=== PATIENT | male | born 2000 | race African-American/Black ===

== ENCOUNTER 2023-02-09 19:48 | Emergency (ER) | payer OTHER, SELFPAY ==
[2023-02-09 20:18] VITALS: BP 121/58; PULSE 64; RESP 18; TEMP 36.6; O2SAT 98; BMI 20.7
--- NOTE | 2023-02-09 20:20 | ED.WOUNDLAC ---
HPI - Wound/Laceration General Chief Complaint: Wound/Laceration Stated Complaint: open wound Time Seen by Provider: 02/09/23 23:36 Source: patient, RN notes reviewed and old records reviewed Mode of arrival: ambulatory Limitations: no limitations History of Present Illness HPI narrative: 22-year-old male presents for evaluation of a laceration to the right upper lip Patient was playing basketball when he at elbow in his upper lip He sustained a small laceration No loss of consciousness or other injuries Unknown last tetanus This happened just prior to arrival Related Data Allergies Allergy/AdvReac Type Severity Reaction Status Date / Time No Known Allergies Allergy Unverified 05/15/20 17:25 Review of Systems Integumentary/Breasts: Skin/Breast: Reports wounds PMFSH Social History Social History Advance Directives: No Advance Directives Information Provided: Yes Physical Exam Vital Signs: Vital Signs: Last Vital Signs Temp 97.7 F 02/10/23 00:00 Pulse 65 02/10/23 00:00 Resp 16 02/10/23 00:00 BP 133/77 02/10/23 00:00 Pulse Ox 98 02/10/23 00:00 O2 Del Method Room Air 02/10/23 00:00 BMI result Body Mass Index 20.7 Const: General: healthy appearing, comfortable, no acute distress, alert and awake Nutritional Appearance: well nourished Orientation/consciousness: patient oriented x3 Eyes: Eyelids: Yes eyelids normal Conjunctivae: conjunctivae normal Sclerae: sclerae normal Corneas: corneas normal Pupils: Equal, round and reactive pupils present EOM: EOMs intact bilaterally Skin: Other: Patient has an approximately 2 cm Y-shaped laceration to the right upper lip. The tail end of the wound does cross the vermilion border by about a half a cm. The patient does have a small avulsion to the inside of the lip but the wound is not through and through Neuro: General: patient oriented x3 Cranial nerves: Yes Equal, round and reactive pupils present and Yes Bilaterally intact EOM present Cognition (Neuro): normal cognition Course Course Course Narrative: RME - 22 yo male presents to the ER for evaluation of an upper lip laceration sustained today when he got elbowed in the mouth while playing basketball. No loose teeth. Lac goes through and through, involved the yamilka border of the upper lip. no active bleeding. Plan: tdap, lac repair Medications Administered Discontinued Medications Generic Name Dose Route Start Last Admin Trade Name Parth PRN Reason Stop Dose Admin Diphtheria/Tetanus/Acell Pertussis 0.5 ml 02/09/23 20:18 02/09/23 22:11 Diphth,Pertus(Acell),Tet Adult 0.5 Ml Syringe IM 02/09/23 20:19 0.5 ml .ONCE ONE Administration Lidocaine HCl 2 ml 02/09/23 23:54 02/10/23 00:04 Lidocaine Hcl 1 % Mpf 2 Ml Vial INFILTRATI 02/09/23 23:55 2 ml ONCE ONE Administration Medical Decision Making Medical Decision Making MDM Narrative: See procedure note for wound repair. Tetanus updated. Differential Diagnosis Laceration Skin tear Puncture wound Complicated laceration Procedures Laceration Laceration 1: Site: lip Side (If applicable): right Size (cm): 2 Description: irregular (Y shape), clean and involves yamilka border Depth: simple, single layer Local Anesthetic: lidocaine 1% Amount of anesthesia used (mL): 2 Pre-repair: wound explored Skin layer closed with: nylon Size (cm): 6-0 Number of sutures: 5 Technique: simple, interrupted Discharge Plan Discharge Clinical Impression: Laceration of lip Patient Disposition: Home, Self-Care Instructions: Facial Laceration (ED) Additional Instructions: Keep the sutures clean and dry. You had 5 sutures placed today. These can be removed in 5-7 days You may apply topical antibiotic Your tetanus shot was updated today
[2023-02-09 22:00] VITALS: BP 111/56; PULSE 50; RESP 16; TEMP 37; O2SAT 97
[2023-02-09] MEDS: Diphth,Pertus(ACell),Tet Adult 0.5 ML SYRINGE IM (22:11)
[2023-02-10] VITALS: BP 133/77; PULSE 65; RESP 16; TEMP 36.5; O2SAT 98
[2023-02-10] MEDS: Lidocaine HCl 1 % MPF 2 ML VIAL INFILTRATI (00:04)
--- NOTE | 2023-02-10 00:05 | PC.NURSE ---
Lidocaine given to lac by provider
== END 2023-02-10 00:55 | disposition home or self-care (01) ==
PROVIDERS: Emergency Provider Internal Medicine
DX: S01.511A Laceration without foreign body of lip, initial encounter (principal); X58.XXXA Exposure to other specified factors, initial encounter; Y93.67 Activity, basketball; Y92.9 Unspecified place or not applicable; Y99.9 Unspecified external cause status; Z23 Encounter for immunization
CPT/HCPCS: 12011; 90471; 90715; 99283; 99284

== ENCOUNTER 2023-02-15 18:52 | Emergency (ER) | payer OTHER, SELFPAY ==
[2023-02-15 19:05] VITALS: BP 134/64; PULSE 63; RESP 18; TEMP 36.1; O2SAT 100; BMI 23.1
--- NOTE | 2023-02-15 19:12 | ED.GENADULT ---
HPI - General Adult General Chief complaint: Wound/Laceration Stated complaint: stiches removed Time Seen by Provider: 02/15/23 19:06 Source: patient, RN notes reviewed and old records reviewed Mode of arrival: ambulatory Limitations: no limitations Related Data Allergies Allergy/AdvReac Type Severity Reaction Status Date / Time No Known Allergies Allergy Unverified 05/15/20 17:25 Review of Systems Integumentary/Breasts: Comments: Healing laceration with [address] Physical Exam ED Vital Signs: Vital Signs - 24 hr 02/15/23 19:05 Temperature 97 F Pulse Rate 63 Respiratory Rate 18 Blood Pressure 134/64 Pulse Oximetry 100 Oxygen Delivery Method Room Air BMI result Body Mass Index 23.1 Skin Other: Healing laceration to the right upper lip is well healed, no surrounding erythema, no purulence, no edema. Five sut[address] Medical Decision Making Medical Decision Making MDM Narrative: I was easily able to remove 5 sutures with scissors and forceps. No dehiscence afterwards, no complications. Differential Diagnosis Suture removal Laceration Skin tear wound check Discharge Plan Discharge Clinical Impression: Laceration, Encounter for removal of sutures Patient Disposition: Home, Self-Care Instructions: Stitches Removal (ED) Additional Instructions: You had 5 sutures removed today without complication Follow-up with your primary doctor Interventions: ED Discharge Assessment Last Done: 02/15/23 19:10
== END 2023-02-15 19:43 | disposition home or self-care (01) ==
LOC: HO.ED 19:19
PROVIDERS: Emergency Provider Emergency Medicine
DX: Z48.02 Encounter for removal of sutures (principal)
CPT/HCPCS: 99282

== ENCOUNTER 2023-08-14 22:56 | Emergency (ER) | payer OTHER, SELFPAY ==
--- NOTE | ~2023-08-14 | XR_ITS ---
EXAMINATION: XR ANKLE, LEFT CLINICAL INFORMATION: Injury COMPARISON: None available. TECHNIQUE: AP, lateral, and mortise views of the left ankle. FINDINGS: No acute fracture or dislocation. Ankle mortise is congruent. Talar dome intact. Prominent lateral soft tissue swelling. No significant ankle joint effusion. XR/XR ankle LT 2V IMPRESSION: * No acute fracture or dislocation. * Prominent lateral soft tissue swelling.
[2023-08-14 23:02] VITALS: BP 124/66; PULSE 50; RESP 20; TEMP 36.5; O2SAT 98; BMI 20.3
--- NOTE | 2023-08-14 23:52 | ED_ITS ---
HPI - Extremity Injury (Lower) General Chief Complaint: Extremity Injury, Lower Stated Complaint: sprained ankle Time Seen by Provider: 08/14/23 23:42 Source: patient Mode of arrival: ambulatory Limitations: no limitations History of Present Illness HPI Narrative: Patient comes to emergency room complaining of left ankle pain and swelling. Patient states that yesterday he was playing basketball, and accidentally rolled his ankle. Yesterday he started having pain and swelling, has been walking on his foot but it is painful doing so. Patient states he has been icing intermittently his ankle. Patient states that he did not come before because he has had ankle sprains before and usually start healing pretty fast. Today, he noted more ecchymosis around the ankle. Related Data Previous Rx's Medication Instructions Recorded ibuprofen 600 mg tablet 600 mg PO TID PRN fever or pain 08/15/23 #20 tabs Allergies Allergy/AdvReac Type Severity Reaction Status Date / Time No Known Allergies Allergy Unverified 05/15/20 17:25 Review of Systems Review of Systems: Constitutional : No Weight loss, No Fever, No Chills, No Night Sweats, No Fatigue, No Malaise ENT/Mouth : No Hearing loss, No Ear Pain, No Nasal Congestion, No Sinus Pain, No Hoarseness, No sore throat, No Rhinorrhea, No Swallowing Difficulty Eyes: No Eye Pain, No Swelling, No Redness, No Foreign Body, No Discharge, No Vision Changes Cardiovascular : No Chest Pain, No SOB, No Dyspnea on Exertion, No Orthopnea, No Edema, No Palpitations Respiratory : No Cough, No Sputum, No Wheezing, No Smoke Exposure, No Dyspnea Gastrointestinal : No Nausea, No Vomiting, No Diarrhea, No Constipation, No abdominal Pain, No Hematochezia, No Melena Genitourinary : no irregular bleeding, No Dysuria, No Urinary Frequency, No Hematuria, No Urinary Incontinence, No Urgency, No Flank Pain, No Urinary Flow Changes, No Hesitancy Musculoskeletal : Complaining of left ankle pain No Myalgias, No Joint Swelling Skin : No Skin Lesions, No rash Neuro : No Weakness, No Numbness, No Paresthesias, No Loss of Consciousness, No Dizziness, No Headache Psych : No Anxiety/Panic, No Depression, No SI/HI/AH/VH, No Social Issues, Heme/Lymph: No Bruising, No Bleeding,No Lymphadenopathy Endocrine : No Polyuria, No Polydipsia, No Temperature Intolerance [facility] Social History Social History Advance Directives: No Advance Directives Information Provided: No Physical Exam Vital Signs: Vital Signs: Last Vital Signs Temp 97.7 F 08/14/23 23:02 Pulse 50 08/14/23 23:02 Resp 20 08/14/23 23:02 BP 124/66 08/14/23 23:02 Pulse Ox 98 08/14/23 23:02 O2 Del Method Room Air 08/14/23 23:02 BMI result Body Mass Index 20.3 Const: Other: Appearance: Alert. Oriented X3. No acute distress. Eyes: Pupils equal, round and reactive to light. ENT: Pharynx normal. Neck: Normal inspection. Neck supple. No lymph nodes noted. No crepitus CVS: Normal heart rate and rhythm. Pulses normal. Normal S1 and S2 Respiratory: No respiratory distress. Breath sounds normal. No Wheezing. No rales Abdomen: Soft and nontender. No rigidity. No distention. Skin: Skin warm and dry. Normal skin color. Normal skin turgor. Extremities: Mild swelling to the lateral aspect of the ankle around the lateral malleolus, no significant pain to palpation. Ecchymosis below the malleolus Neuro: Oriented X 3. No motor deficit. No sensory deficit. Moving all extremities. No slurred speech. CN 2 through 12 grossly intact Psych: calm, cooperative, normal affect Course Course Course Narrative: -ankle x-ray pending Medical Decision Making Medical Decision Making MDM Narrative: -my interpretation of x-ray of the ankle: Tissue swelling, normal alignment, no fracture -patient requesting crutches, patient states that he has to work standing up and crutches would help him get through his day at work. -discussed with the patient to do a gentle ankle exercises to avoid frozen joint Differential Diagnosis Differential Diagnoses: The differential diagnosis associated with the presentation includes (Ankle sprain, malleolar fracture, ecchymosis) Independent Interpretation I performed an independent interpretation of an: Plain X-Ray Radiology Impression Discussion of test interpretation with radiology: I have reviewed the radiologist's reading. Radiologist Impression: FINDINGS: No acute fracture or dislocation. Ankle mortise is congruent. Talar dome intact. Prominent lateral soft tissue swelling. No significant ankle joint effusion. Discharge Plan Discharge Clinical Impression: Ankle sprain and strain Patient Disposition: Home, Self-Care Instructions: Ankle Sprain (ED) Additional Instructions: Please follow-up with your primary care physician tomorrow. If you have any worsening or new symptoms, please return to the emergency room or call 911 Prescriptions: New ibuprofen 600 mg tablet 600 mg PO TID PRN (Reason: fever or pain) Qty: 20 0RF Stand Alone Forms: Work/School Release
--- NOTE | 2023-08-15 00:40 | PC.NURSE ---
pt [email or web address] reports L. ankle injury x 1 day. +csm before and after stephanie bandage. crutch training provided pt able to ambulate comfortably with crutches. pt verbalizes understanding d/c instructions.
== END 2023-08-15 00:41 | disposition home or self-care (01) ==
PROVIDERS: Emergency Provider Emergency Medicine
DX: S93.402A Sprain of unspecified ligament of left ankle, initial encounter (principal); S96.912A Strain of unspecified muscle and tendon at ankle and foot level, left foot, initial encounter; Y93.67 Activity, basketball; Y92.9 Unspecified place or not applicable; Y99.9 Unspecified external cause status
CPT/HCPCS: 73600; 99282; 99283

== ENCOUNTER 2023-08-24 22:15 | Emergency (ER) | payer OTHER, SELFPAY ==
[2023-08-24 22:58] VITALS: BP 145/71; PULSE 56; RESP 16; TEMP 36.9; O2SAT 98; BMI 20.3
[2023-08-25] VITALS: BP 139/63; PULSE 54; RESP 14; TEMP 37; O2SAT 99
--- NOTE | 2023-08-25 00:59 | ED.LOWEXIN ---
HPI - Extremity Injury (Lower) General Chief Complaint: Extremity Injury, Lower Stated Complaint: Ankle swelling and pain Time Seen by Provider: 08/25/23 00:05 Source: patient Mode of arrival: ambulatory Limitations: no limitations History of Present Illness HPI Narrative: Patient is a 22-year-old male who presents emergency department for evaluation of persistent pain and swelling to the left ankle and foot. He states he was seen here last week and advised that he had an ankle sprain. He reports a history of sprains in the past but never having lasted for this duration so he sought re-evaluation today. He denies any injury. He denies numbness tingling or cold sensation to the foot. When asked, he states he is wearing the Dwayne bandage at times throughout the day, he has been ?elevating including his leg, but rather keeping at a neutral position, not above the level of his heart. Related Data Previous Rx's Medication Instructions Recorded ibuprofen 600 mg tablet 600 mg PO TID PRN fever or pain 08/15/23 #20 tabs Allergies Allergy/AdvReac Type Severity Reaction Status Date / Time No Known Allergies Allergy Unverified 05/15/20 17:25 Review of Systems Review of Systems: Yes all other systems are reviewed and are negative PMFSH Past Medical History Attestation statement: The following information was validated with the patient. Source: old records reviewed Social History Social History Advance Directives: No Advance Directives Information Provided: No Physical Exam Vital Signs: Vital Signs: Last Vital Signs Temp 98.6 F 08/25/23 00:00 Pulse 54 08/25/23 00:00 Resp 14 08/25/23 00:00 BP 139/63 08/25/23 00:00 Pulse Ox 99 08/25/23 00:00 O2 Del Method Room Air 08/25/23 00:00 BMI result Body Mass Index 20.3 Appearance: Alert.?Oriented to person, place and time. No acute distress.?Normal affect. Neck: Normal inspection.? Neck supple.?? CVS: Heart sounds normal. Normal heart rate and rhythm.? Pulses normal.?? Respiratory: No respiratory distress.? Lung sounds clear to auscultation bilaterally?? Skin: Skin warm and dry.? Normal skin color.? ?? Extremities: Moderate swelling to the lateral malleolus in the midfoot, mild tenderness upon palpation. Ecchymosis present. 2+ DP/PT pulse bilaterally Neuro: Moves all extremities spontaneously. Sensation intact bilaterally. No focal neuro deficits. Medical Decision Making Medical Decision Making MDM Narrative: Patient is a 22 old year male who presents emergency department for evaluation of persistent pain and swelling to the ankle. His extremities neurovascularly intact distally. I reviewed his visit from 08/14/2023 in addition to the x-ray at that time which was without evidence of acute fracture dislocation. She has been using the Dwayne bandage intermittently throughout the day without any consistency, in addition to crutches. I did advise patient that ankle sprains can last up to 6 weeks. He has not been taking any anti-inflammatory medication nor has he been elevating his extremity appropriately. We discussed these treatments, and advised outpatient follow-up with primary care provider/Orthopedics for persistent symptoms. Reviewed worrisome signs and symptoms that would warrant re-evaluation emergency department. All questions answered. Stable for discharge. Differential Diagnosis Differential Diagnoses: The differential diagnosis associated with the presentation includes (As noted above) Prescription Management I considered prescription management with: Pain Medication (Acetaminophen/ibuprofen) Discharge Plan Discharge Clinical Impression: Ankle sprain and strain Patient Disposition: Home, Self-Care Instructions: Ankle Sprain (ED), How to Use an Elastic Bandage (ED) Additional Instructions: You can take ibuprofen 200 mg, 3 tablets (600mg) every 6-8 hours as needed for pain, in addition to Tylenol 500 mg, 2 tablets (1,000mg) every 4-6 hours as needed for pain, but not to exceed 3 doses daily (3,000mg).? As discussed, ankle sprain intake to 6 weeks to fully heal. Prescriptions: No Action ibuprofen 600 mg tablet 600 mg PO TID PRN (Reason: fever or pain) Qty: 20 0RF Referrals: Darinel Piña PA-C [Physician [employer]] - Interventions: ED Discharge Assessment Last Done: 08/25/23 01:26 Discharge Date/Time: 08/25/23 01:29
== END 2023-08-25 01:29 | disposition home or self-care (01) ==
PROVIDERS: Emergency Provider Student in an Organized Health Care Education/Training Program
DX: S93.402A Sprain of unspecified ligament of left ankle, initial encounter (principal); X58.XXXA Exposure to other specified factors, initial encounter; Y93.9 Activity, unspecified; Y92.9 Unspecified place or not applicable; Y99.9 Unspecified external cause status
CPT/HCPCS: 99282; 99283

== ENCOUNTER 2024-07-08 13:22 | Emergency (ER) | payer OTHER, SELFPAY ==
[2024-07-08 13:39] VITALS: BP 135/72; PULSE 49; RESP 14; TEMP 36.2; O2SAT 100; BMI 21.3
--- NOTE | 2024-07-08 13:41 | ED_ITS ---
HPI - General Adult General Chief complaint: Eye Problems Stated complaint: eye swelling Time Seen by Provider: 07/08/24 13:44 Source: patient Mode of arrival: ambulatory Limitations: no limitations History of Present Illness ED Provider: Litzy Page PA-C HPI narrative: Patient is a 23 year old assigned male at with no reported medical history presenting to the emergency department today with right lower eye lid swelling. Patient states that over the last 2 days he has had right lower eye lid swelling. Patient states that he is not knowingly allergic to anything but does own a dog. Patient denies any dizziness, lightheadedness, abdominal pain, nausea, vomiting, fever, chills, blurry vision, double vision, loss of vision, chest pain, difficulty breathing, shortness of breath, back pain, night sweats, pain with urination, increased urinary frequency, increased urinary urgency, blood in his urine or stool, syncope or a near syncopal episode, recent trauma or falls, bowel incontinence, bladder incontinence, or any other complaints at this time. Relieving factors: none Exacerbating factors: none Associated symptoms: denies other symptoms Treatments prior to arrival: none Related Data Previous Rx's ?Medication ?Instructions ?Recorded ibuprofen 600 mg tablet 600 mg PO TID PRN fever or pain 08/15/23 #20 tabs loratadine 10 mg tablet 10 mg PO DAILY #14 tabs 07/08/24 Allergies Allergy/AdvReac Type Severity Reaction Status Date / Time No Known Allergies Allergy Unverified 07/08/24 13:42 Review of Systems Constitutional: Constitutional: Reports no additional constitutional complaints, Denies chills, Denies fever(s) and Denies night sweats Eyes: Eyes: Reports no additional eye complaints, Denies blurry vision, Denies change in vision, Denies diplopia, Denies eye discharge, Denies loss of vision and Denies eye pain Comments: right lower eye lid swelling ENT: Denies dizziness Cardiovascular: Cardiovascular: Reports no additional cardiovascular complaints, Denies chest pain, Denies lightheadedness, Denies Loss of Consciousness and Denies dyspnea Respiratory: Respiratory: Reports no additional respiratory complaints and Denies dyspnea Gastrointestinal: Gastrointestinal: Reports no additional gastrointestinal complaints, Denies abdominal pain, Denies melena, Denies hematochezia, Denies change in bowel habits and Denies change in stool character Genitourinary: Genitourinary: Reports no additional male genitourinary complaints, Denies hematuria, Denies oliguria, Denies difficulty urinating, Denies dysuria, Denies urinary frequency, Denies urinary hesitancy, Denies urinary incontinence and Denies urinary urgency Musculoskeletal: Musculoskeletal: Reports no additional musculoskeletal complaints, Denies numbness and Denies tingling Neurologic: Denies dizziness, Denies loss of vision, Denies numbness and Denies tingling Psychiatric: Psychiatric: Reports no additional psychiatric complaints Endocrine: Endocrine: Reports no additional endocrine complaints Hematologic/Lymphatic: Hematologic/Lymphatic: Reports no additional hematologic/lymphatic complaints Allergic/Immunologic: Allergic/Immunologic: Reports no additional allergic/immunologic complaints [facility] Past Medical History Attestation statement: The following information was validated with the patient. Source: old records reviewed and nursing notes reviewed Social History Social History Advance Directives: No Advance Directives Information Provided: No Physical Exam ED Vital Signs: Vital Signs - 24 hr 07/08/24 13:39 07/08/24 13:51 Temperature 97.1 F 97.1 F Pulse Rate 49 L 49 L Respiratory Rate 14 14 Blood Pressure 135/72 135/72 Pulse Oximetry 100 100 Oxygen Delivery Method Room Air Room Air BMI result Body Mass Index 21.3 Const General: cooperative, no acute distress, alert and awake Nutritional Appearance: well nourished Orientation/consciousness: patient oriented x3 Limitations: no limitations [facility] Head: Yes normal to inspection and Yes atraumatic Ears: hearing grossly normal bilaterally and external ears normal General nose exam: Normal external nose present, no nasal discharge noted and no epistaxis Face and sinus: Yes normal facial exam, No abrasion and No laceration Mouth: Normal oral and palatal mucosa present, no drooling and no muffled voice Eyes Other: bilateral lower eye lid swelling - right worse than left, consistent with allergic shiners Conjunctivae: conjunctivae normal Pupils: Equal, round and reactive pupils present EOM: EOMs intact bilaterally Neck Neck: Yes normal visual inspection, Yes full ROM and Yes no lymphadenopathy Chest Chest palpation & inspection: normal inspection of the chest Resp Effort & Inspection: normal respiratory effort and able to speak in complete sen tences GI Inspection: Yes normal to inspection Neuro General: patient oriented x3 and moves all extremities Cranial nerves: Yes Equal, round and reactive pupils present Cognition (Neuro): normal cognition Extrem General: Yes normal to inspection, Yes full ROM and Yes capillary refill normal Psych Appearance: grossly normal Mental Status: mental status grossly normal Affect: normal affect Attitude: cooperative Thought process: Normal thought process present Thought content: Normal thought content present Insight: Good insight present (Psych) Medical Decision Making Medical Decision Making MDM Narrative: Patient is a 23 year old assigned male at with no reported medical history presenting to the emergency department today with right lower eye lid swelling. Patient's physical exam was as noted in the physical exam portion of this note. Patient's clinical presentation is consistent with allergic conjunctivitis. I explained my physical exam findings to the patient. I answered all questions asked by the patient. I stressed the importance of the patient taking his medication as directed (either prescribed or as the over the counter packaging recommends). I stressed the importance of the patient following up with his primary care provider. I stressed the importance of the patient returning to the emergency department immediately if his symptoms were to worsen or if he were to develop any dizziness, shortness of breath, difficulty breathing, chest pain, blurry vision, loss of vision, nausea, vomiting, abdominal pain, fever, chills, back pain, or any other complaints. Patient verbalized agreement and understanding with this treatment plan and discharge. Differential Diagnosis Differential Diagnoses: The differential diagnosis associated with the presentation includes Bilateral allergic conjunctivitis Admission/Observation Consideration of admission/observation: Escalation of care including admission/observation considered Patient would have been admitted to the hospital had his clinical presentation warranted hospital admission. Discharge Plan Discharge Clinical Impression: Acute allergic conjunctivitis Patient Disposition: Home, Self-Care Instructions: Conjunctivitis (ED) Additional Instructions: Follow up with your primary care provider. Return to the emergency department immediately if your symptoms worsen or if you develop any dizziness, shortness of breath, difficulty breathing, chest pain, blurry vision, loss of vision, nausea, vomiting, abdominal pain, fever, chills, back pain, or any other complaints. Prescriptions: New loratadine 10 mg tablet 10 mg PO DAILY Qty: 14 0RF No Action ibuprofen 600 mg tablet 600 mg PO TID PRN (Reason: fever or pain) Qty: 20 0RF Referrals: [facility] [place] [facility]] (Call to establish and follow up with a primary care provider. If you already have a primary care provider, please follow up with them.) [facility] [place] [Provider Group] (Call to establish and follow up with a primary care provider. If you already have a primary care provider, please follow up with them.) [facility]] (Call to establish and follow up with a primary care provider. If you already have a primary care provider, please follow up with them.) Interventions: ED Discharge Assessment Last Done: 07/08/24 13:51 Discharge Date/Time: 07/08/24 13:54 Print Language: Turkmen
[2024-07-08 13:51] VITALS: BP 135/72; PULSE 49; RESP 14; TEMP 36.2; O2SAT 100
== END 2024-07-08 13:54 | disposition home or self-care (01) ==
LOC: HO.ED 13:54
PROVIDERS: Emergency Provider Emergency Medicine
DX: H10.11 Acute atopic conjunctivitis, right eye (principal)
CPT/HCPCS: 99282

== ENCOUNTER 2024-09-28 14:18 | Outpatient (AMB) | payer OTHER, SELFPAY ==
[2024-09-28 14:19] VITALS: BP 100/62; PULSE 49; O2SAT 98; BMI 21.5
--- NOTE | 2024-09-28 14:19 | MHC.PC.OV ---
Vital Signs 09/28/24 14:19 Height 6 ft Weight 158 lb 4 oz BMI 21.5 BP 100/62 Blood Pressure Location Lt brachial Position Sitting Pulse 49 L Pulse Source Pulse Oximeter Pulse Oximetry (%) 98 Oxygen Delivery Method Room Air Intake Visit Reasons: establish care Scudding Inspector Required: No Accompanied by: Self / Same As Patient Allergies No Known Allergies Allergy (Verified 09/28/24 14:31) Medication List - Last Reconciled 09/28/24 by AUNG Guaman ibuprofen 600 mg PO TID PRN loratadine 10 mg PO DAILY Tobacco use date assessed: 09/28/24 Dental Screening Dental Screen Date: 09/28/24 Did you have a dental visit in the last 12 months?: No Did you have a dental problem in the last 6 months where you did not have access to dental care?: No Was dental information given to patient?: No HPI establish care HPI Details Previous PCP: had a pediatrist Last visit: [id number] Last PE: 2019 Specialist:n/a OBGYN:n/a Past medical history: reports having Medications: Family HX: mom htn and osteoarthritits The patient is a 23-year-old male presenting to establish care Problem: insomnia: started in college, recently, having problem falling asleep tried reading a book, turning off the light, new mattress help some denies coffee, alcohol, denies smoking reports eating close to bedtime at times because of the his shift at work Discussed with patient about possibly trying melatonin. He is not interested in any medical treatment for this at this time anxiety: Reports ongoing for years. He learned up to cope with it without treatment, he is not interested in seeing a therapist at this time and if this feeling changes he will contact the office and let us know fungus on foot: bilateral feet toenail fungus, patient reports this has been going on for few years now. He has tried OTC fungal cream and powder without any effect -will treat the patient with terbinafine 250 mg daily times 12 weeks PFSH Medical History Insomnia Anxiety Family History Other Hypertension Social History Housing: House Patient Tobacco Use Status: Never used Tobacco e-Cigarette/Vaping Use: Never Used service: No Current occupational status: employed Current occupational exposures/hazards: No Cognitive needs: No Hearing needs: No Vision needs: No Questionnaire PHQ-9 Over the last 2 weeks, how often have you been bothered by any of the following problems? 1. Little interest or pleasure in doing things: several days 2. Feeling down, depressed, or hopeless: several days 3. Trouble falling or staying asleep, or sleeping too much: several days 4. Feeling tired or having little energy: not at all 5. Poor appetite or overeating: not at all 6. Feeling bad about yourself - or that you are a failure or have let yourself or your family down: not at all 7. Trouble concentrating on things, such as reading the newspaper or watching television: not at all 8. Moving or speaking so slowly that other people could have noticed. Or the opposite - being so fidgety or restless that you have been moving around a lot more than usual: not at all 9. Thoughts that you would be better off or of hurting yourself in some way: not at all Total score: 3 Depression Screening Interpretation: Negative Depression Screening Done: Yes 15089 - PHQ-9 Billing: Yes Source: Developed by Drs. Gordon Jensen, Nelida High, Eugene Melvin and colleagues, with an educational raya from [employer]. Thrive Questionnaire Date Thrive assessed: 09/28/24 I am a: Patient What is your living situation today?: I have a steady place to live Within the past 12 months, did the food you bought not last and you didn't have the money to get more?: Never true Within the past 12 months, did you worry whether your food would run out before you got money to buy more?: Never true Do you have trouble paying for medicines?: No Do you have trouble getting transportation to medical appointments?: No Do you have trouble paying your heating and electricity bill?: No Do you have trouble taking care of your child, family member or friend?: No Do you have trouble with day-to-day activities such as bathing, preparing meals, shopping, managing finances, etc.?: No Are you currently unemployed and looking for a job?: No Are you interested in more education?: No Please select the resources that you would like help with: None Currently or been in a relationship where the following occur: No concerns reported THRIVE Score: 0 AUDIT C Alcohol Use Questionnaire (AUDIT-C) 1. How often do you have a drink containing alcohol?: Never 3. How often do you have six or more drinks on one occasion?: Never Total Score: 0 Score Reviewed/Action Taken: Yes ADALBERTO-7 AMB Questionnaire ADALBERTO-7 Date ADALBERTO - 7 assessed: 09/28/24 Feeling nervous, anxious, or on edge: 1 = Several days Not being able to stop or control worryin = Not at all Worrying too much about different things: 0 = Not at all Trouble relaxin = Not at all Being so restless that it is hard to sit still: 0 = Not at all Becoming easily annoyed or irritable: 0 = Not at all Feeling afraid as if something awful might happen: 0 = Not at all Total ADALBERTO-7 score (0-4 normal; 5-9 mild; 10-14 moderate; 15-21 severe): 1 Source: Developed by Drs. Gordon Jensen, Nelida High, Eugene Melvin and colleagues, with an educational raya from [employer]. ADALBERTO-7 Assessment Billing ADALBERTO-7 Assessment Tool: ADALBERTO-7 Assessment 67236 Review of Systems Const Details: Denies chills, Denies fatigue, Denies fever(s), Denies headache(s) and Denies weakness HEENT Denies change in vision, Denies dizziness, Denies headache(s), Denies hearing loss, Denies nasal congestion, Denies sinus pain, Denies sinus pressure and Denies sore throat Card Denies chest pain, Denies lightheadedness, Denies dyspnea and Denies other (palpitations) Resp Denies cough, Denies dyspnea and Denies wheezing GI Denies abdominal pain, Denies melena, Denies hematochezia, Denies change in bowel habits, Denies dyspepsia and Denies nausea Denies hematuria and Denies dysuria Musc Denies abnormal gait, Denies myalgias, Denies arthralgias, Denies numbness and Denies tingling Skin/Breast Denies rash, Denies unusual bruising and Denies wounds, reports toenail fungus Neuro Denies abnormal gait, Denies dizziness, Denies headache(s), Denies memory loss, Denies numbness, Denies Sensory deficit (Neuro), Denies tingling and Denies weakness Psych Reports anxiety, Denies depression and Denies memory loss Endo Denies cold intolerance, Denies fatigue, Denies heat intolerance, Denies polydipsia and Denies polyuria Other: Reports insomnia Rich/Lymph Denies easy bleeding and Denies easy bruising Aller/Immun Denies wheezing Physical exam (Primary Care) Vital Signs: Last Vital Signs Pulse 49 L 09/28/24 14:19 BP 100/62 09/28/24 14:19 Pulse Ox 98 09/28/24 14:19 Oxygen Delivery Method Room Air 09/28/24 14:19 BMI result Body Mass Index 21.5 Tobacco/Smoking Status: Tobacco use Status Tobacco use date assessed 09/28/24 09/28/24 14:26 Patient Tobacco Use Status Never used Tobacco 09/28/24 14:26 e-Cigarette/Vaping Use Never Used 09/28/24 14:26 PHQ-9: PHQ-9 Score PHQ-9: Total score 3 09/30/24 14:12 Depression Screening Interpretation: Negative Thrive Assessment: Date of Thrive Assessment Date Thrive assessed 09/28/24 09/28/24 14:26 Currently or been in a relationship where the following occur: No concerns reported Const Other: General: no acute distress, well developed, alert and awake Nutritional Appearance: well nourished Orientation/consciousness: patient oriented x3 HENMT Head: Yes normocephalic and Yes atraumatic Ears: hearing grossly normal bilaterally and TM's normal bilaterally General nose exam: Normal external nose present and Normal nares present Mouth: Normal oral and palatal mucosa present and moist mucous membranes Eyes Pupils: Equal, round and reactive pupils present and Pupil accommodation reflex normal EOM: EOMs intact bilaterally Neck Neck: Yes normal visual inspection, Yes no lymphadenopathy and Yes trachea midline Thyroid: Thyroid normal Resp Effort & Inspection: normal respiratory effort Auscultation: clear to auscultation bilaterally Cardio Rate: regular rate Rhythm: regular rhythm Heart sounds: S1 normal heart sound present, S2 normal heart sound present, no gallops, no murmurs and no rubs GI Palpation (GI): Abdomen is soft and nontender to palpation Auscultation: normal bowel sounds General: Yes no CVA tenderness Back/Spine/Pelvis Back: no CVA tenderness Cervical Spine: cervical ROM normal and No Cervical spine tenderness Thoracic/Lumbar Spine: no lumbar tenderness Skin General: warm and dry. Normal skin color. Normal skin turgor Lesions: no lesions Nails: normal Neuro General: patient oriented x3, gait normal Cranial nerves: Yes Equal, round and reactive pupils present Cognition (Neuro): normal cognition Gait exam (Neuro): Normal gait present Extrem General: Yes normal to inspection, No edema and No calf tenderness Other: bilateral feet with multiple dark/black, brittle-appearing toenails Psych Appearance: grossly normal Affect: normal affect Attitude: cooperative Thought process: Normal thought process present Coding Level of Care Code New Pt Level 3 (92632) Diagnoses Fungal infection of toenail B35.1 Insomnia, unspecified type G47.00 Insomnia type: unspecified Anxiety F41.9 Additional Codes ADALBERTO-7 Assessment Billing - ADALBERTO-7 Assessment Tool: ADALBERTO-7 Assessment 54827 ([id number]) PHQ-9 - 29734 - PHQ-9 Billing: Yes ([id number]) Time Spent (min) 26 Assessment & Plan Assessment & Plan (1) Fungal infection of toenail: Code(s): B35.1 - Tinea unguium Category: Medical Plan: Terbinafine 250 mg daily times 12 weeks (2) Insomnia: Code(s): G47.00 - Insomnia, unspecified Category: Medical Qualifiers: Insomnia type: unspecified Qualified Code(s): G47.00 - Insomnia, unspecified Plan: Reinforced sleep hygiene Discussed with patient about possibly trying melatonin The patient will rather solving this problem naturally Reports that there has been some improvements and he will continue to work on this (3) Anxiety: Code(s): F41.9 - Anxiety disorder, unspecified Category: Medical Plan: Patient has been coping with his anxiety without any issues He is declining CBT or medical management Denies SI/HI Plan Patient is to get blood work done return in 2 weeks for a physical Orders: Orders Complete Blood Count Auto Diff 09/28/24 Z00.00 - Encounter for general adult medical examination without abnormal findings Vitamin D 25-OH Total 09/28/24 Z00.00 - Encounter for general adult medical examination without abnormal findings TSH reflex Free T4 09/28/24 Z00.00 - Encounter for general adult medical examination without abnormal findings Glucose Fasting 09/28/24 Z00.00 - Encounter for general adult medical examination without abnormal findings Comprehensive [place]. Panel Fast 09/28/24 Z00.00 - Encounter for general adult medical examination without abnormal findings UA CC w/rflx Micro + Cult 09/28/24 Z00.00 - Encounter for general adult medical examination without abnormal findings Lipid Panel 09/28/24 Z00.00 - Encounter for general adult medical examination without abnormal findings Medications: New terbinafine HCl 250 mg PO DAILY 12 weeks 84 tabs 0RF
== END 2024-09-28 14:55 | disposition home or self-care (01) ==
DX: B35.1 Tinea unguium (principal); G47.00 Insomnia, unspecified; F41.9 Anxiety disorder, unspecified

== ENCOUNTER → 2024-09-28 14:18 | Outpatient (BNVA) | payer OTHER, SELFPAY | DX: B35.1 Tinea unguium (principal); G47.00 Insomnia, unspecified; F41.9 Anxiety disorder, unspecified | CPT/HCPCS: 96127 ==

== ENCOUNTER 2024-10-19 11:51 | Outpatient (REF) | payer OTHER, SELFPAY ==
[2024-10-19 12:01] LABS: MANUAL DIFF FLAG NO
[2024-10-19 13:32] LABS: Basophils Percent Auto 0.5 % (0-2); Eosinophils Absolute Auto 0.1 X10*3/uL (0.0-0.4); Eosinophils Percent Auto 2.7 % (0-4); Hematocrit 44.8 % (42.0-52.0); Hemoglobin 15.3 g/dl (14.0-18.0); Lymphocytes Absolute Auto 1.7 X10*3/uL (1.2-4.9); Lymphocytes Percent Auto 39.8 % (20-40); Mean Corpuscular HGB Conc 34.2 g/dl (31.0-36.0); Mean Corpuscular Hemoglobin 30.5 pg (27.0-33.0); Mean Corpuscular Volume 89.2 fL (80.0-98.0); Mean Platelet Volume 10.9 fL (9.4-12.4); Monocytes Absolute Auto 0.4 X10*3/uL (0.1-1.2); Monocytes Percent Auto 8.7 % (2-11); Neutrophils Absolute Auto 2.1 x10*3/uL (2.0-8.3); Neutrophils Percent Auto 48.3 % (45-73); Platelet Count 244 X10*3/uL (160-400); Red Blood Count 5.02 X10*6/uL (4.60-5.80); Red Cell Distribution Width 11.2 % (11.0-16.0); White Blood Count 4.4 X10*3/uL (4.8-10.8)
[2024-10-19 13:50] LABS: Appearance Urine Clear; Color Urine Yellow; Glucose Urine UA Negative (Negative); Leukocyte Esterase Urine Negative (Negative); Nitrite Urine Negative (Negative); PH 6.5 (5.0-9.0); Urine Blood Negative (Negative); Urine Ketones Negative (Negative); Urine Protein Negative (Neg-Trace)
[2024-10-19 14:20] LABS: Alanine Aminotransferase 21 U/L (0-40); Albumin Level 4.6 g/dL (3.5-5.0); Alkaline Phosphatase 87 U/L (39-117); Anion Gap 10 (12-20); Aspartate Amino Transferase 20 U/L (5-37); Bilirubin Total 1.3 mg/dL (0.0-1.0); Blood Urea Nitrogen 17 mg/dL (9-16); Carbon Dioxide 30 mmol/L (22-29); Chloride 102 mmol/L (96-108); Cholesterol 165 mg/dL (<200); Estimated Glomerular Filt Rate > 60; Glucose Fasting 87 mg/dL (60-99); HDL Cholesterol 54 mg/dL (>40); LDL Cholesterol Calculated 98 mg/dL (<100); Potassium 3.9 mmol/L (3.3-5.1); Sodium 138 mmol/L (135-145); TSH reflex Free T4 1.83 uIU/mL (0.32-4.0); Triglycerides 69 mg/dL (<150)
== END 2024-10-19 11:52 | disposition home or self-care (01) ==
LOC: HO.LAB 11:51
DX: Z00.00 Encounter for general adult medical examination without abnormal findings (principal); Z13.6 Encounter for screening for cardiovascular disorders
CPT/HCPCS: 36415; 80053; 80061; 81003; 82306; 84443; 85025

== ENCOUNTER 2024-10-25 14:54 | Outpatient (AMB) | payer OTHER, SELFPAY ==
[2024-10-25 15:02] VITALS: BP 116/80; PULSE 51; O2SAT 97; BMI 21.1
--- NOTE | 2024-10-25 15:02 | A.OFFPC_ITS ---
Vital Signs 10/25/24 15:02 Height 6 ft Weight 155 lb 6 oz BMI 21.1 BP 116/80 Blood Pressure Location Lt brachial Position Sitting Pulse 51 Pulse Source Pulse Oximeter Pulse Oximetry (%) 97 Oxygen Delivery Method Room Air Intake Visit Reasons: Annual PE Accompanied by: Self / Same As Patient Allergies No Known Allergies Allergy (Verified 10/25/24 20:00) Medication List - Last Reconciled 10/25/24 by AUNG Guaman cholecalciferol (vitamin D3) 25 mcg PO DAILY ibuprofen 600 mg PO TID PRN loratadine 10 mg PO DAILY terbinafine HCl 250 mg PO DAILY 12 weeks Tobacco use date assessed: 10/25/24 Dental Screening Dental Screen Date: 10/25/24 Did you have a dental visit in the last 12 months?: No Did you have a dental problem in the last 6 months where you did not have access to dental care?: No Was dental information given to patient?: No HPI Annual PE HPI Details Dentist: no-The patient was encouraged to try and make this a regular routine Eye: about 2 years ago-encouraged Snellen: Right: Left: Corrected vision: none STI screening:n/a Colonoscopy:n/a Pap Smer:n/a PHQ-9:n/a Flu:declines COVID: x2 Tdap: up to date Diet: regular Exercise:Play basketball The patient is a 23-year-old male with no significant past medical history He is presenting today for annual physical Reports that he has no concerns today Denies shortness of breath, chest pain, dizziness, heart palpitation Patient reports that he is moving his bowels okay, denies abdominal pain He denies urinary symptoms PFSH Medical History Insomnia Anxiety Family History Other Hypertension Social History Housing: House Patient Tobacco Use Status: Never used Tobacco e-Cigarette/Vaping Use: Never Used service: No Current occupational status: employed Current occupational exposures/hazards: No Cognitive needs: No Hearing needs: No Vision needs: No Questionnaire PHQ-9 Over the last 2 weeks, how often have you been bothered by any of the following problems? 2. Feeling down, depressed, or hopeless: several days 3. Trouble falling or staying asleep, or sleeping too much: several days 4. Feeling tired or having little energy: several days 5. Poor appetite or overeating: not at all 6. Feeling bad about yourself - or that you are a failure or have let yourself or your family down: several days 7. Trouble concentrating on things, such as reading the newspaper or watching television: not at all 8. Moving or speaking so slowly that other people could have noticed. Or the opposite - being so fidgety or restless that you have been moving around a lot more than usual: not at all 9. Thoughts that you would be better off or of hurting yourself in some way: not at all Source: Developed by Drs. Gordon Jensen, Nelida High, Eugene Melvin and colleagues, with an educational raya from [employer]. Thrive Questionnaire Date Thrive assessed: 10/25/24 I am a: Patient What is your living situation today?: I have a steady place to live Within the past 12 months, did the food you bought not last and you didn't have the money to get more?: Never true Within the past 12 months, did you worry whether your food would run out before you got money to buy more?: Never true Do you have trouble paying for medicines?: No Do you have trouble getting transportation to medical appointments?: No Do you have trouble paying your heating and electricity bill?: No Do you have trouble taking care of your child, family member or friend?: No Do you have trouble with day-to-day activities such as bathing, preparing meals, shopping, managing finances, etc.?: No Are you currently unemployed and looking for a job?: No Are you interested in more education?: No Please select the resources that you would like help with: None Currently or been in a relationship where the following occur: No concerns reported THRIVE Score: 0 AUDIT C Alcohol Use Questionnaire (AUDIT-C) 1. How often do you have a drink containing alcohol?: Never 3. How often do you have six or more drinks on one occasion?: Never Total Score: 0 Score Reviewed/Action Taken: Yes ADALBERTO-7 AMB Questionnaire ADALBERTO-7 Date ADALBERTO - 7 assessed: 10/25/24 Feeling nervous, anxious, or on edge: 1 = Several days Not being able to stop or control worryin = Not at all Worrying too much about different things: 0 = Not at all Trouble relaxin = Not at all Being so restless that it is hard to sit still: 0 = Not at all Becoming easily annoyed or irritable: 0 = Not at all Feeling afraid as if something awful might happen: 0 = Not at all Total ADALBERTO-7 score (0-4 normal; 5-9 mild; 10-14 moderate; 15-21 severe): 1 Source: Developed by Drs. Gordon Jensen, Nelida High, Eugene Melvin and colleagues, with an educational raya from [employer]. Review of Systems Const Details: Denies chills, Denies fatigue, Denies fever(s), Denies headache(s) and Denies weakness HEENT Denies change in vision, Denies dizziness, Denies headache(s), Denies hearing loss, Denies nasal congestion, Denies sinus pain, Denies sinus pressure and Denies sore throat Card Denies chest pain, Denies lightheadedness, Denies dyspnea and Denies other (palpitations) Resp Denies cough, Denies dyspnea and Denies wheezing GI Denies abdominal pain, Denies melena, Denies hematochezia, Denies change in bowel habits, Denies dyspepsia and Denies nausea Denies hematuria and Denies dysuria Musc Denies abnormal gait, Denies myalgias, Denies arthralgias, Denies numbness and Denies tingling Skin/Breast Denies rash, Denies unusual bruising and Denies wounds Neuro Denies abnormal gait, Denies dizziness, Denies headache(s), Denies memory loss, Denies numbness, Denies Sensory deficit (Neuro), Denies tingling and Denies weakness Psych Denies anxiety, Denies depression and Denies memory loss Endo Denies cold intolerance, Denies fatigue, Denies heat intolerance, Denies polydipsia and Denies polyuria Rich/Lymph Denies easy bleeding and Denies easy bruising Aller/Immun Denies wheezing Physical exam (Primary Care) Vital Signs: Last Vital Signs Pulse 51 10/25/24 15:02 BP 116/80 10/25/24 15:02 Pulse Ox 97 10/25/24 15:02 Oxygen Delivery Method Room Air 10/25/24 15:02 BMI result Body Mass Index 21.1 Tobacco/Smoking Status: Tobacco use Status Tobacco use date assessed 10/25/24 10/25/24 15:08 Patient Tobacco Use Status Never used Tobacco 10/25/24 15:08 e-Cigarette/Vaping Use Never Used 10/25/24 15:08 Thrive Assessment: Date of Thrive Assessment Date Thrive assessed 10/25/24 10/25/24 15:08 Currently or been in a relationship where the following occur: No concerns reported Const Other: General: no acute distress, well developed, alert and awake Nutritional Appearance: well nourished Orientation/consciousness: patient oriented x3 HENMT Head: Yes normocephalic and Yes atraumatic Ears: hearing grossly normal bilaterally and TM's normal bilaterally, dried up cerumen in ear canal of bilateral ears General nose exam: Normal external nose present and Normal nares present Mouth: Normal oral and palatal mucosa present and moist mucous membranes Teeth and gingiva: dentition normal Throat: Yes oropharynx normal Eyes Pupils: Equal, round and reactive pupils present and Pupil accommodation reflex normal EOM: EOMs intact bilaterally Neck Neck: Yes normal visual inspection, Yes no lymphadenopathy and Yes trachea midline Thyroid: Thyroid normal Carotids: no bruits Lymphatic: no lymphadenopathy noted Chest Chest palpation & inspection: normal inspection of the chest Resp Effort & Inspection: normal respiratory effort Auscultation: clear to auscultation bilaterally Cardio Rate: regular rate Rhythm: regular rhythm Heart sounds: S1 normal heart sound present, S2 normal heart sound present, no gallops, no murmurs and no rubs Bruits: no abdominal aortic bruits and no carotid bruits GI Palpation (GI): No Abdominal aortic bruit present, Soft to palpation, nontender, No hepatosplenomegaly present and No Rebound tenderness present Auscultation: normal bowel sounds General: Yes no CVA tenderness Back/Spine/Pelvis Back: no CVA tenderness Cervical Spine: cervical ROM normal and No Cervical spine tenderness Thoracic/Lumbar Spine: thoraco-lumbar ROM normal, No pain with thoraco-lumbar ROM, No thoracic spinal tenderness and No lumbar spinal tenderness Skin General: warm and dry. Normal skin color. Normal skin turgor Lesions: no lesions Rashes: no rashes Trauma: no lacerations or abrasions Wounds: no wounds Nails: normal Neuro General: patient oriented x3, gait normal and CN's II-XI intact bilaterally Cranial nerves: Yes Equal, round and reactive pupils present Cognition (Neuro): normal cognition Gait exam (Neuro): Normal gait present Motor exam (neuro): 5/5 motor strength present throughout Sensory Exam: No Sensory deficit (Neuro) Deep tendon reflexes (DTR's): Right patellar reflex intensity grade: 2+ and Left patellar reflex intensity grade: 2+ Extrem General: Yes normal to inspection, No edema and No calf tenderness Psych Appearance: grossly normal Affect: normal affect Attitude: cooperative Thought process: Normal thought process present Results Reviewed Results Reviewed: Laboratory Tests 10/19/24 10/19/24 11:56 12:01 WBC 4.4 L RBC 5.02 Hgb 15.3 Hct 44.8 MCV 89.2 MCH 30.5 RDW 11.2 Plt Count 244 Sodium 138 Potassium 3.9 Chloride 102 Carbon Dioxide 30 H Anion Gap 10 L BUN 17 H Creatinine 0.95 Estimated GFR > 60 Fasting Glucose 87 AST 20 ALT 21 Alkaline Phosphatase 87 Triglycerides 69 Cholesterol 165 LDL Cholesterol, Calc 98 HDL Cholesterol 54 25-OH Vitamin D Total 11.0 L TSH 1.83 Urine Color Yellow Urine Appearance Clear Urine pH 6.5 Ur Specific [place] 1.020 Urine Protein Negative Urine Glucose (UA) Negative Urine Ketones Negative Urine Blood Negative Urine Nitrite Negative Ur Leukocyte Esterase Negative Coding Level of Care Code Est Pt Prev Care 18-39y(41183) Diagnoses Annual physical exam Z00.00 Insomnia, unspecified type G47.00 Insomnia type: unspecified Anxiety F41.9 Fungal infection of toenail B35.1 Time Spent (min) 33 Assessment & Plan Assessment & Plan (1) Annual physical exam: Code(s): Z00.00 - Encounter for general adult medical examination without abnormal findings Category: Medical Plan: Preventive guidelines and recent labs reviewed with patient (2) Insomnia: Code(s): G47.00 - Insomnia, unspecified Category: Medical Qualifiers: Insomnia type: unspecified Qualified Code(s): G47.00 - Insomnia, unspecified Plan: Reinforced sleep hygiene Discussed with patient about possibly trying melatonin The patient will rather solving this problem naturally Reports that there has been some improvements and he will continue to work on this (3) Anxiety: Code(s): F41.9 - Anxiety disorder, unspecified Category: Medical Plan: Patient has been coping with his anxiety without any issues He is declining CBT or medical management Denies SI/HI (4) Fungal infection of toenail: Code(s): B35.1 - Tinea unguium Category: Medical Plan: Terbinafine 250 mg daily times 12 weeks was ordered on previous visit. The patient is currently still taking the medication without any issues. Plan Patient to return in 1 year for annual physical Orders: Orders Lipid Panel 1 Year Z00.00 - Encounter for general adult medical examination without abnormal findings Vitamin D 25-OH Total 1 Year Z00.00 - Encounter for general adult medical examination without abnormal findings Glucose Fasting 1 Year Z00.00 - Encounter for general adult medical examination without abnormal findings Complete Blood Count Auto Diff 1 Year Z00.00 - Encounter for general adult medical examination without abnormal findings Comprehensive [place]. Panel Fast 1 Year Z00.00 - Encounter for general adult medical examination without abnormal findings UA CC w/rflx Micro + Cult 1 Year Z00.00 - Encounter for general adult medical examination without abnormal findings TSH reflex Free T4 1 Year Z00.00 - Encounter for general adult medical examination without abnormal findings Medications: New cholecalciferol (vitamin D3) 25 mcg PO DAILY 90 caps 3RF
== END 2024-10-25 15:39 | disposition home or self-care (01) ==
DX: Z00.00 Encounter for general adult medical examination without abnormal findings (principal); G47.00 Insomnia, unspecified; F41.9 Anxiety disorder, unspecified; B35.1 Tinea unguium